=== PATIENT | female | born 1930 | race Caucasian/White ===

== ENCOUNTER 2017-02-23 21:27 | Emergency (ER) | payer MEDICARE, BC ==
[2017-02-23] MEDS ORDERED: Zithromax 500 MG/ 250 ML NaCl Premix 250 ML IV ONE ×2 (21:39→22:11)
[2017-02-23] MEDS ORDERED: ROCEPHIN 1 Gm-D5w 50 ml Bag** 1 G/50 ML IVPB IV ONE ×2 (21:39→22:11)
--- NOTE | 2017-02-23 21:44 | ERPHSYRPT ---
- History of Present Illness Time Seen by Provider: 02/23/17 21:35 Source: patient, family ([id number]) Exam Limitations: no limitations Patient Subjective Stated Complaint: PT REPORTS SHE HAS HAD PRODUCTIVE COUGH FOR AGES-YELLOW SPUTUM-LOW GRADE FEVER-STATES THAT PCP HAS BEEN TX HER FOR IT BUT IT ISN'T GOING AWAY Triage Nursing Assessment: PT PINK HOT ET DRY-ABLE TO SPEAK IN COMPLETE SNETNES- LUNGS CLEAR-NO RETRACTIONS NOTED-ALERT ET ANSWERING QUESTIONS Physician History: FOR YEARS PT HAS HAD COUGHING PRODUCTIVE OF YELLOW PHLEGM; TODAY SHORTNESS OF AIR AND FEVER UP TO 100.5 DEGREES. PT DENIES CHEST PAIN, ABDOMINAL PAIN, VOMITING; ADMITS TO FEET SWELLING FOR YEARS. Allergies/Adverse Reactions: No Known Drug Allergies Allergy (Verified 02/23/17 21:40) Home Medications: Carvedilol 25 mg PO DAILY 10/16/14 [History] Cyanocobalamin 500 Mcg [Vitamin B-12 500 MCG] 2,500 mcg PO DAILY 10/16/14 [History] Furosemide [Lasix] 20 mg PO BID 10/16/14 [History] Potassium Chloride [K-Dur] 10 meq PO DAILY 10/16/14 [History] Simvastatin 20 mg PO HS 10/16/14 [History] Aspirin 81 mg PO DAILY 01/06/16 [History] Budesonide/Formoterol Fumarate [Symbicort 80-4.5 Mcg Inhaler] 80 mcg IH UD PRN 01/06/16 [History] Celecoxib [Celebrex] 200 mg PO BID 01/06/16 [History] Clonazepam 0.5 mg [Klonopin 0.5 MG] 0.5 mg PO BID 01/06/16 [History] Ergocalciferol (Vitamin D2) [Vitamin D] 50,000 mg PO UD 01/06/16 [History] Multivitamin with Minerals [Hair, Skin & Nails] 1 tab PO DAILY 01/06/16 [History ] Naproxen Sodium [Aleve] 220 mg PO [id number] PRN 01/06/16 [History] [place]-3 Fatty Acids [Fish Oil] 300 mg PO DAILY 01/06/16 [History] Hx Tetanus, Diphtheria Vaccination/Date Given: No Hx Influenza Vaccination/Date Given: Yes Hx Pneumococcal Vaccination/Date Given: Yes Immunizations Up to Date: Yes - Review of Systems Constitutional: Fever Respiratory: Cough, Dyspnea Musculoskeletal: Joint Swelling (FEET) All Other Systems: Reviewed and Negative - Past Medical History Pertinent Past Medical History: Yes Neurological History: Stroke ENT History: Cataracts Cardiac History: Congestive Heart Failure Respiratory History: CHF, COPD, Emphysema Endocrine Medical History: No Pertinent History Musculoskeletal History: Fractures GI Medical History: No Pertinent History History: No Pertinent History Psycho-Social History: Anxiety Female Reproductive Disorders: No Pertinent History Other Medical History: right clavicle - Past Surgical History Past Surgical History: Yes Neuro Surgical History: No Pertinent History Cardiac: No Pertinent History Respiratory: No Pertinent History Gastrointestinal: Appendectomy, Cholecystectomy Genitourinary: No Pertinent History Musculoskeletal: No Pertinent History Female Surgical History: Hysterectomy Other Surgical History: CATARACTS REMOVED BILAT EYES, 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 - BILATERAL HEARING AUGMENTATION) Neck Exam: normal inspection Respiratory Exam: lungs clear Cardiovascular/Chest Exam: regular rate/rhythm Abdominal/Gastrointestinal Exam: soft, normal bowel sounds Extremity Exam: pedal edema (+1 PEDAL EDEMA BILATERALLY) Peripheral Pulses Exam: dorsalis-pedis (R): 2+, dorsalis-pedis (L): 2+ Neurologic Exam: alert, cooperative Skin Exam: warm, dry SpO2 Interpretation: normal SpO2: 96 Oxygen Delivery: Room Air - Course Nursing assessment & vital signs reviewed: Yes EKG Interpreted by Me: RATE (91`), Sinus Rhythm, NORMAL AXIS, NORMAL INTERVALS - Radiology Exams Chest X-ray Interpretation: Teleradiologist Report (NO ACUTE FINDINGS.) Ordered Tests: Active Orders 24 hr Category Date Time Status Sorting Machine Attendant STAT Care 02/23/17 21:39 Active Clean Catch Urine Specimen STAT Care 02/23/17 21:39 Active EKG-ER Only STAT Care 02/23/17 21:39 Active IV Insertion STAT Care 02/23/17 21:39 Active Oxygen-ED Only NASAL CANNULA 2 lpm Care 02/23/17 21:39 Active Pulse Oximetry (ED) STAT Care 02/23/17 21:39 Active CHEST 1 VIEW (PORTABLE) Stat Exams 02/23/17 21:40 Taken ARTERIAL BLOOD GASES Urgent Lab 02/23/17 21:39 Ordered BLOOD CULTURE Stat Lab 02/23/17 21:55 Received CBC W DIFF Stat Lab 02/23/17 21:40 Completed CMP Stat Lab 02/23/17 21:40 Completed CULTURE, THROAT Stat Lab 02/23/17 21:57 Received CULTURE,SPUTUM Stat Lab 02/23/17 23:24 Ordered MAGNESIUM Stat Lab 02/23/17 21:40 Completed Gregory Screen Stat Lab 02/23/17 21:40 Completed NT PRO BNP Stat Lab 02/23/17 21:40 Completed STREP SCREEN-BETA A Stat Lab 02/23/17 21:57 Completed TROPONIN Stat Lab 02/23/17 21:40 Completed UA W/ MICROSCOPIC Stat Lab 02/23/17 23:15 Completed Medication Summary Generic Name Dose Route Start Last Admin Trade Name Freq PRN Reason Stop Dose Admin Sodium Chloride 1,000 mls @ 100 mls/hr 02/23/17 21:45 02/23/17 22:32 Sodium Chloride 0.9% 1000 Ml IV 03/25/17 21:44 100 mls/hr .Q10H ASHUTOSH Administration Magnesium Oxide 400 mg 02/24/17 10:00 02/23/17 23:30 Mag-Ox 400 PO 03/26/17 09:59 400 mg BID ASHUTOSH Administration Discontinued Medications Generic Name Dose Route Start Last Admin Trade Name Freq PRN Reason Stop Dose Admin Acetaminophen 650 mg 02/23/17 23:23 02/23/17 23:30 Tylenol 325 Mg PO 02/23/17 23:24 650 mg STAT ONE Administration Acetaminophen Confirm 02/23/17 23:27 Tylenol 325 Mg Administered 02/23/17 23:28 Dose 650 mg .ROUTE .STK-MED ONE Azithromycin 250 mls @ 125 mls/hr 02/23/17 21:39 02/23/17 22:32 Zithromax 500 Mg/ 250 Ml Nacl Premix IV 02/23/17 23:38 125 mls/hr STAT ONE Administration Ceftriaxone Sodium/Dextrose 1 g in 50 mls @ 100 mls/hr 02/23/17 21:39 22:32 Rocephin 1 Gm-D5w 50 Ml Bag IV 02/23/17 22:08 100 mls/hr STAT ONE Administration Azithromycin Confirm 02/23/17 22:11 Zithromax 500 Mg/ 250 Ml Nacl Premix Administered 02/23/17 22:12 Dose 250 mls @ ud IV .STK-MED ONE Ceftriaxone Sodium/Dextrose Confirm 02/23/17 22:11 Rocephin 1 Gm-D5w 50 Ml Bag Administered 02/23/17 22:12 Dose 1 g in 50 mls @ ud IV .STK-MED ONE Lab/Rad Data: Laboratory Result Diagrams 02/23/17 21:40 02/23/17 21:40 Laboratory Results 02/23/17 02/23/17 02/23/17 Range/Units 23:15 21:57 21:40 WBC (4.0-10.5) K/mm3 RBC (4.1-5.4) M/mm3 Hgb (12.0-16.0) gm/dl Hct (35-47) % MCV (78-100) fl MCH (26-32) pg MCHC (32-36) g/dl RDW (11.5-14.0) % Plt Count (150-450) K/mm3 MPV (6-9.5) fl Gran % (36.0-66.0) % Lymphocytes % (24.0-44.0) % Monocytes % (0.0-12.0) % Eosinophils % (0.00-5.0) % Basophils % (0.0-0.4) % Basophils # (0-0.4) Sodium (136-145) mEq/L Potassium (3.5-5.1) mEq/L Chloride (98-107) mEq/L Carbon Dioxide (21-32) mEq/L Anion Gap (5-15) MEQ/L BUN (9-20) mg/dL Creatinine (0.55-1.30) mg/dl Estimated GFR ML/MIN Glucose (70-110) MG/DL Calcium (8.5-10.1) mg/dL Magnesium (1.8-2.4) mg/dL Total Bilirubin (0.2-1.0) mg/dL AST (15-37) U/L ALT (12-78) U/L Alkaline Phosphatase (46-116) U/L Troponin I (0.000-0.056) ng/ml NT-Pro-B Natriuret Pep (0-450) pg/ml Serum Total Protein (6.4-8.2) gm/dL Albumin (3.4-5.0) g/dL Ur Collection Type CLEAN CATCH Urine Color YELLOW (YELLOW) Urine Appearance CLEAR (CLEAR) Urine pH 8.5 (5-6) Ur Specific [place] 1.015 (1.005-1.025) Urine Protein NEGATIVE (Negative) Urine Glucose (UA) NEGATIVE (NEGATIVE) mg/dL Urine Ketones TRACE (NEGATIVE) Urine Nitrite NEGATIVE (NEGATIVE) Urine Bilirubin NEGATIVE (NEGATIVE) Urine Urobilinogen 1 (0-1) mg/dL Urine WBC (Auto) NEGATIVE (NEGATIVE) Urine RBC (Auto) TRACE NON-HEM (0-5) Ralph/ul Urine Microscopic RBC 0-2 (0-2) /HPF Ur Epithelial Cells FEW (FEW) /HPF Monoscreen POSITIVE (Negative) Streptococcus Screen NEGATIVE (Negative) Specimen Received 02/23/17:2330 02/23/17 02/23/17 Range/Units 21:40 21:40 WBC 9.6 (4.0-10.5) K/mm3 RBC 4.02 L (4.1-5.4) M/mm3 Hgb 12.5 (12.0-16.0) gm/dl Hct 38.1 (35-47) % MCV 94.8 (78-100) fl MCH 31.0 (26-32) pg MCHC 32.8 (32-36) g/dl RDW 12.8 (11.5-14.0) % Plt Count 144 L (150-450) K/mm3 MPV 11.1 H (6-9.5) fl Gran % 67.2 H (36.0-66.0) % Lymphocytes % 13.8 L (24.0-44.0) % Monocytes % 11.5 (0.0-12.0) % Eosinophils % 7.3 H (0.00-5.0) % Basophils % 0.2 (0.0-0.4) % Basophils # 0.02 (0-0.4) Sodium 141 (136-145) mEq/L Potassium 3.9 (3.5-5.1) mEq/L Chloride 105 (98-107) mEq/L Carbon Dioxide 26.0 (21-32) mEq/L Anion Gap 13.6 (5-15) MEQ/L BUN 20 (9-20) mg/dL Creatinine 1.23 (0.55-1.30) mg/dl Estimated GFR 44 ML/MIN Glucose 104 (70-110) MG/DL Calcium 9.4 (8.5-10.1) mg/dL Magnesium 1.7 L (1.8-2.4) mg/dL Total Bilirubin 1.3 H (0.2-1.0) mg/dL AST 17 (15-37) U/L ALT 13 (12-78) U/L Alkaline Phosphatase 68 (46-116) U/L Troponin I < 0.017 (0.000-0.056) ng/ml NT-Pro-B Natriuret Pep 395 (0-450) pg/ml Serum Total Protein 6.9 (6.4-8.2) gm/dL Albumin 3.4 (3.4-5.0) g/dL Ur Collection Type Urine Color (YELLOW) Urine Appearance (CLEAR) Urine pH (5-6) Ur Specific [place] (1.005-1.025) Urine Protein (Negative) Urine Glucose (UA) (NEGATIVE) mg/dL Urine Ketones (NEGATIVE) Urine Nitrite (NEGATIVE) Urine Bilirubin (NEGATIVE) Urine Urobilinogen (0-1) mg/dL Urine WBC (Auto) (NEGATIVE) Urine RBC (Auto) (0-5) Ralph/ul Urine Microscopic RBC (0-2) /HPF Ur Epithelial Cells (FEW) /HPF Monoscreen (Negative) Streptococcus Screen (Negative) Specimen Received - Departure Time of Disposition: 00:13 Departure Disposition: Home Clinical Impression: BRONCHITIS, PHARYNGITIS, INFECTIOUS MONONUCLEOSIS, MILD HYPOMAGNESEMIA Condition: Fair Critical Care Time: No Referrals: DOMINGO DUGGAN DO [Primary Care Provider] - Instructions: Mononucleosis, Pharyngitis/Tonsillopharyngitis -- Adult Additional Instructions: FOLLOW UP WITH PRIVATE DOCTOR TOMORROW. Prescriptions: Guaifenesin/Codeine Phosphate [Robitussin AC Syrup] 10 ml PO Q4H PRN PRN #120 ml PRN Reason: Pain Azithromycin 250 mg [Zithromax 250 MG TABLET] 250 mg PO ZPACK #6 tablet
[2017-02-23] MEDS ORDERED: Sodium Chloride 0.9% 1000 ML 1,000 ML IV SCH (21:45)
[2017-02-23 22:00] LABS: BASOPHIL % 0.2 % (0.0-0.4); Eosinophil % 7.3 % (0.00-5.0); Granulocytes % 67.2 % (36.0-66.0); Lymphocytes % 13.8 % (24.0-44.0); Mean Cell Volume 94.8 fl (78-100); Mean Platelet Volume 11.1 fl (6-9.5); Monocytes % 11.5 % (0.0-12.0); Platelet Count 144 K/mm3 (150-450); Red Blood Count 4.02 M/mm3 (4.1-5.4); Red Cell Distribution Width 12.8 % (11.5-14.0); White Blood Count 9.6 K/mm3 (4.0-10.5)
[2017-02-23] MEDS ORDERED: Sodium Chloride 0.9% 1000 ML 1,000 ML ONE (22:11)
[2017-02-23 22:28] LABS: ALBUMIN 3.4 g/dL (3.4-5.0); ALKALINE PHOSPHATASE 68 U/L (46-116); ANION GAP 13.6 MEQ/L (5-15); BILIRUBIN,TOTAL 1.3 mg/dL (0.2-1.0); BLOOD UREA NITROGEN 20 mg/dL (9-20); CHLORIDE 105 mEq/L (98-107); Glucose 104 MG/DL (70-110); MAGNESIUM 1.7 mg/dL (1.8-2.4); Potassium 3.9 mEq/L (3.5-5.1); SGOT/AST 17 U/L (15-37); SGPT/ALT 13 U/L (12-78); SODIUM 141 mEq/L (136-145); Total Protein 6.9 gm/dL (6.4-8.2)
[2017-02-23 22:30] LABS: TROPONIN < 0.017 ng/ml (0.000-0.056)
[2017-02-23 22:37] VITALS: BP 153/60
[2017-02-23] MEDS ORDERED: TYLENOL 325 MG PO ONE (23:23)
[2017-02-23 23:24] VITALS: PULSE 99
[2017-02-23 23:25] VITALS: O2SAT 96
[2017-02-23] MEDS ORDERED: MAG-OX 400 ONE (23:27)
[2017-02-23] MEDS ORDERED: TYLENOL 325 MG ONE (23:27)
[2017-02-23 23:54] LABS: COMPLETE URINE MICROSCOPIC? YES; Collection Type CLEAN CATCH; Ph 8.5 (5-6)
[2017-02-23 23:55] LABS: Epithelial Cells FEW /HPF (FEW)
[2017-02-24] MEDS ORDERED: Robitussin AC Syrup Unit Dose Cup ONE (00:24)
[2017-02-24] MEDS: Robitussin AC Syrup Unit Dose Cup PO PRN ×2 (00:25→00:29)
--- NOTE | 2017-02-24 08:36 | XRAY ---
Indication: Short of breath, cough, congestion. Comparison: January 06, 2016. Portable chest again demonstrates calcified granulomas. No focal infiltrate, consolidation, or large effusion. Heart is borderline enlarged. Vascularity normal. Bony thorax intact again with osteopenia and degenerative changes. Impression: Nonacute chest with chronic features. Comment: Preliminary interpretation was made by [facility]. No discrepancy.
[2017-02-24] MEDS ORDERED: MAG-OX 400 PO SCH (10:00)
== END 2017-02-24 00:29 | disposition home or self-care (01) ==
LOC: ED 21:27
DX: J40 Bronchitis, not specified as acute or chronic (principal); J02.9 Acute pharyngitis, unspecified; B27.90 Infectious mononucleosis, unspecified without complication; E83.42 Hypomagnesemia; Z79.82 Long term (current) use of aspirin; Z79.899 Other long term (current) drug therapy
CPT/HCPCS: 36000; 36415; 71010; 80053; 81000; 83735; 83880; 84484; 85025; 86308; 87040; 87070; 87430; 93005; 93041; 96360; 96361; 96365; 96366; 99284; 99285; J0456; J0696; A9270-GY